=== PATIENT | female | born 1965 | race Caucasian/White ===

== ENCOUNTER 2020-07-06 11:26 | Emergency (ER) | payer BC ==
[~2020-07-06] VITALS: Ht 177.8 cm; Wt 100.0 kg
[2020-07-06 11:39] VITALS: BP 139/82; TEMP 98.1
[2020-07-06] MEDS ORDERED: ZESTRIL 20MG TA20 MG PO (11:46)
[2020-07-06] MEDS ORDERED: NORCO 325 MG-101 TAB PO (11:47)
[2020-07-06] MEDS ORDERED: CRUTCHES MC (11:56)
[2020-07-06 12:15] VITALS: PULSE 78
[2021-01-14] MEDS ORDERED: NORCO 325 MG-51 TAB PO (11:13)
== END 2020-07-06 12:13 | disposition home or self-care (01) ==
LOC: COL.ER 11:26
DX: S76.301A Unspecified injury of muscle, fascia and tendon of the posterior muscle group at thigh level, right thigh, initial encounter (principal); F17.210 Nicotine dependence, cigarettes, uncomplicated; W01.0XXA Fall on same level from slipping, tripping and stumbling without subsequent striking against object, initial encounter
CPT/HCPCS: L1846

== ENCOUNTER → 2021-02-05 | Outpatient (CLI) | payer BC ==
[~2021-02-05] VITALS: Ht 177.8 cm; Wt 110.5 kg
[~2021-02-05] MED LIST: CRUTCHES MC; NORCO 325 MG-101 TAB PO; NORCO 325 MG-51 TAB PO; ZESTRIL 20MG TA20 MG PO
[2021-02-05 12:50] VITALS: BP 131/94; PULSE 100; TEMP 98.1
[2021-02-05 14:00] VITALS: BP 155/91; PULSE 95
[2021-02-05 14:15] VITALS: BP 146/90; PULSE 91
== END ==
LOC: COL.RAD 12:26
DX: M47.812 Spondylosis without myelopathy or radiculopathy, cervical region (principal); M50.30 Other cervical disc degeneration, unspecified cervical region; M48.02 Spinal stenosis, cervical region
CPT/HCPCS: A9585; J2250; J2704

== ENCOUNTER → 2021-05-05 | Outpatient (CLI) | payer BC | LOC: MHCPAIN 14:38 | DX: M47.812 Spondylosis without myelopathy or radiculopathy, cervical region (principal); M79.18 Myalgia, other site; M54.2 Cervicalgia | CPT/HCPCS: G0463 ==

== ENCOUNTER → 2021-07-07 | Outpatient (CLI) | payer BC | LOC: MHCPAIN 14:49 | DX: M79.18 Myalgia, other site (principal); M54.2 Cervicalgia; M54.6 Pain in thoracic spine | CPT/HCPCS: J1040 ==

== ENCOUNTER → 2021-07-21 | Outpatient (CLI) | payer BC | LOC: MHCPAIN 12:37 | DX: M47.812 Spondylosis without myelopathy or radiculopathy, cervical region (principal); M54.2 Cervicalgia; M54.12 Radiculopathy, cervical region; G89.29 Other chronic pain | CPT/HCPCS: G0463 ==

== ENCOUNTER → 2021-09-23 | Outpatient (CLI) | payer BC ==
[~2021-09-23] VITALS: Ht 177.8 cm; Wt 107.9 kg
[2021-09-23 09:29] VITALS: BP 154/108; PULSE 106; TEMP 98.2
[2021-09-23 10:30] VITALS: BP 160/100; PULSE 99
== END ==
LOC: COL.RAD 08:57
DX: D49.7 Neoplasm of unspecified behavior of endocrine glands and other parts of nervous system (principal); E04.1 Nontoxic single thyroid nodule
CPT/HCPCS: 32106

== ENCOUNTER → 2021-09-24 | Outpatient (CLI) | payer BC | LOC: COL.RAD 09:57 | DX: E34.9 Endocrine disorder, unspecified (principal) ==

== ENCOUNTER → 2021-10-21 | Outpatient (CLI) | payer BC | LOC: COL.RAD 09:49 | DX: E34.9 Endocrine disorder, unspecified (principal) | CPT/HCPCS: A9500 ==

== ENCOUNTER → 2022-12-29 | Outpatient (CLI) | payer BC | LOC: COL.RAD 10:30 | DX: E21.0 Primary hyperparathyroidism (principal) | CPT/HCPCS: A9500-JZ ==